=== PATIENT | male | born 1945 | race Hispanic/Latino ===

== ENCOUNTER → 2017-10-31 | Outpatient (CLI) | payer MEDICARE ==
[~2017-10-31] MED LIST: ASPIR 8181 MG; ASPIRIN ENTERI325 MG PO; CARVEDILOL12.5 MG PO; CARVEDILOL3.125 MG PO; CARVEDILOL6.25 MG PO; CLOPIDOGREL75 MG PO; COREG3.125 MG PO; DIAZEPAM2 MG PO; ECOTRIN81 MG PO; ISOSORBIDE MONO30 M1 PO; ISOSORBIDE MONO30 MG PO; ISOSORBIDE MONO60 MG PO; KEFLEX500 MG PO; LAMISIL250 MG PO; LISINOPRIL2.5 MG PO; MELOXICAM7.5 MG PO; NORCO 5-325 TA1 EACH PO; OMEPRAZOLE40 MG PO; ORPHENADRINE C100 MG PO; PLAVIX75 MG PO; RANEXA500 MG PO; REGADENOSON 0.4 MG/5 ML SYR IV ONE; SIMVASTATIN20 MG PO; SODIUM CHLORIDE 0.9% 250ML 250 ML ONE; TIZANIDINE HCL4 MG PO; VASOTEC10 M1 PO; VASOTEC5 MG PO; VICODIN 5-5001 EACH; XARELTO10 MG PO
--- NOTE | 2017-10-31 18:53 | Cardiology Report ---
DATE OF STUDY: October 31, 2017 LEXISCAN NUCLEAR STRESS TEST INDICATIONS: Chest pain. DESCRIPTION OF PROCEDURE: After informed consent, patient was brought to the stress lab. He was given 11 mCi of technetium 99 Myoview intravenously and myocardial perfusion and SPECT images obtained in horizontal long axis, short axis, and vertical long axis views and subsequently patient was given 0.4 mg Lexiscan over 10 seconds. Patient was given 32 mCi of technetium 99 Myoview, and myocardial perfusion SPECT image was obtained in the horizontal long axis, short axis and vertical long axis views. Gating images were also obtained. Patient tolerated the procedure without any complications. REPORT: Baseline EKG shows sinus rhythm 79 beats per minute. Left anterior fascicular block, right bundle right block and secondary ST-T changes. PARAMETERS 1. Resting heart rate is 71 beats per minute. 2. Maximum heart rate 99 beats per minute. 3. Resting blood pressure 98/72 mmHg. 4. Maximum blood pressure 113/75 mmHg. REASON FOR TERMINATION: End point attained. INTERPRETATION 1. Negative for chest pain. 2. Negative for arrhythmias. 3. Blood pressure response consistent with Lexiscan. 4. No significant ST-T changes seen during Lexiscan infusion compared to baseline. 5. Analysis SPECT images reveals uniform radioisotope uptake in all segments of myocardium without any significant perfusion defect. CONCLUSION: No evidence of significant ischemia or infarction on the study. Mild diffuse hypokinesis of the left ventricle is noted. Overall ejection fraction is 47%. Job#: [id number]
== END ==
LOC: NM 07:53
DX: R07.2 Precordial pain (principal)
CPT/HCPCS: 78452; 93017; A9502; J7050

== ENCOUNTER 2018-11-27 21:38 | Emergency (ER) | payer MEDICARE, OTHER ==
[~2018-11-27] VITALS: Ht 167.6 cm; Wt 104.3 kg
[~2018-11-27 21:38] MED LIST changes: -REGADENOSON 0.4 MG/5 ML SYR IV ONE; -SODIUM CHLORIDE 0.9% 250ML 250 ML ONE
--- OUTSIDE RECORDS SUMMARY | 2018-11-27 21:42 | XMS REPORT ---
Author Author [facility] Address Unknown Phone Unavailable Care Team Providers Care [employer] Consultant Name Role Phone MATTHEW WRIGHT Unavailable Unavailable TERESA QUEEN Unavailable Unavailable Problems This patient has no known problems. Allergies, Adverse Reactions, Alerts This patient has no known allergies or adverse reactions. Medications This patient has no known medications. Results Test Description Test Time Test Comments Text Results Atomic Results Result Comments Stress Test - Treadmill ONLY [place] [address] Patient Name : ROMI HERNDON MR #: [id number] : 1945 Age/Sex: 72/M Adm Physician : MATTHEW WRIGHT MD Admit Date : Location : [place] Room/Bed : REPORT: Cardiology Report DATE OF STUDY: October 31, 2017 LEXISCAN NUCLEAR STRESS TEST INDICATIONS: Chest pain. DESCRIPTION OF PROCEDURE: After informed consent, patient was brought to the stress lab. He was given 11 mCi of technetium 99 Myoview intravenously and myocardial perfusion and SPECT images obtained in horizontal long axis, short axis, and vertical long axis views and subsequently patient was given 0.4 mg Lexiscan over 10 seconds. Patient was given 32 mCi of technetium 99 Myoview, and myocardial perfusion SPECT image was obtained in the horizontal long axis, short axis and vertical long axis views. Gating images were also obtained. Patient tolerated the procedure without any complications. REPORT: Baseline EKG shows sinus rhythm 79 beats per minute. Left anterior fascicular block, right bundle right block and secondary ST-T changes. PARAMETERS 1. Resting heart rate is 71 beats per minute. 2. Maximum heart rate 99 beats per minute. 3. Resting blood pressure 98/72 mmHg. 4. Maximum blood pressure 113/75 mmHg. REASON FOR TERMINATION: End point attained. INTERPRETATION 1. Negative for chest pain. 2. Negative for arrhythmias. 3. Blood pressure response consistent with Lexiscan. 4. No significant ST-T changes seen during Lexiscan infusion compared to baseline. 5. Analysis SPECT images reveals uniform radioisotope uptake in all segments of myocardium without any significant perfusion defect. CONCLUSION: No evidence of significant isc hemia or infarction on the study. Mild diffuse hypokinesis of the left ventricle is noted. Overall ejection fraction is 47%. Job#: [id number] Signature Date Dictated By: MATTHEW WRIGHT MD Transcribed By: EDS on 10/31/17 <Electronically signed by MATTHEW WRIGHT MD><<Signature on File>>11/01/17 0957 COPY TO: CHEST 2 VIEWS [place] [address] Patient Name: ROMI HERNDON MR #: [id number] : 1945 Age/Sex: 72/M Req #: [id number] Adm Physician: Ordered by: TERESA QUEEN MD Report #: [id number] Location: OR Room/Bed: Procedure: [id number] DX/CHEST 2 VIEWS Exam Date: 07/03/17 Exam Time: 1140 REPORT STATUS: Signed PROCEDURE: Frontal and lateral views of the chest. COMPARISON: None. INDICATIONS: PRE-OP LEFT KNEE SURGERY MONDAY FINDINGS: Lines/tubes: None. Lungs: The lungs are well inflated and clear. There is no evidence of pneumonia or pulmonary edema. Pleura: There is no pleural effusion or pneumothorax. Heart and mediastinum: The heart and the mediastinum are normal. Atherosclerotic calcifications. Bones: No acute bony abnormality. Degenerative changes of the thoracic spine. IMPRESSION: No acute radiographic abnormality. Dictated by: Ursula Hubbard M.D. on 07/03/2017 at 12:19 Electronically approved by: Ursula Hubbard M.D. on 07/03/2017 at 12:19 Dictated By: URSULA HUBBARD MD 1219 Transcribed By: NOA on 07/03/17 1219 COPY TO: TERESA QUEEN MD
[2018-11-27] MEDS ORDERED: TRAMADOL HCL 50 MG TAB PO ONE (23:30)
--- NOTE | 2018-11-28 01:26 | Diagnostic Imaging Report ---
FOOT LEFT COMPLETE, ANKLE 3+ VIEWS LEFT - 3 views HISTORY: Pain status post injury. COMPARISON: None available. FINDINGS: Bones: No acute displaced fracture. Osseous alignment is within normal limits. Joints: Degenerative changes of the tarsal joints, first metatarsophalangeal joint, and tibiotalar joint. Soft tissues: Plantar calcaneal enthesophyte and Achilles enthesopathy. Vascular calcifications. Moderate soft tissue swelling, particularly of the lateral malleolus. IMPRESSION: No acute osseous abnormality. Signed by: Dr. Carlos Anders M.D. on 11/28/2018 1:22 AM
[2018-11-28 01:51] VITALS: BP 123/79
== END 2018-11-28 02:00 | disposition home or self-care (01) ==
LOC: ER 21:38
DX: M25.572 Pain in left ankle and joints of left foot (principal); S93.492A Sprain of other ligament of left ankle, initial encounter; X50.1XXA Overexertion from prolonged static or awkward postures, initial encounter; Y92.008 Other place in unspecified non-institutional (private) residence as the place of occurrence of the external cause; I10 Essential (primary) hypertension; M54.9 Dorsalgia, unspecified; G89.29 Other chronic pain
CPT/HCPCS: 99283

== ENCOUNTER → 2019-11-26 | Outpatient (CLI) | payer MEDICARE ==
[~2019-11-26] MED LIST changes: +REGADENOSON 0.4 MG/5 ML SYR IV ONE
--- NOTE | 2019-11-26 22:19 | Myoview Stress Test ---
DATE OF STUDY: 11/26/2019 08:47:00 Stress Test - Treadmill ONLY PROCEDURE TITLE: Rest/stress single isotope SPECT imaging with pharmacologic stress and gated SPECT imaging. INDICATION: Chest pain. PROCEDURE IN DETAIL: Pharmacologic stress testing was performed with regadenoson per protocol. The heart rate was 65 beats per minute at rest and increased to 97 beats per minute. During the regadenoson infusion, the resting blood pressure was 102/67 mmHg and decreased to 84/59 mmHg, which is a normal response. The resting electrocardiogram demonstrated normal sinus rhythm. There were no ST-segment changes suggestive of myocardial ischemia. Myocardial perfusion imaging was performed at rest following the injection of 11 mCi of tetrofosmin. At peak pharmacologic effect, the patient was injected with 33 mCi of tetrofosmin. Gated post-stress tomographic imaging was performed. FINDINGS: The overall quality of study is fair. Left ventricular cavity is noted to be normal size on the rest and stress studies. SPECT images demonstrate homogeneous tracer distribution throughout the myocardium. Gated SPECT imaging reveals normal myocardial thickening and wall motion. The left ventricular ejection fraction was greater than 50% by visual estimate. IMPRESSION: Myocardial perfusion imaging is normal. Overall, left ventricular systolic pressure was normal without regional wall motion abnormalities. Johanne Gilbert MD ABS/MODL /[id number]
== END ==
LOC: NM 08:29
PROVIDERS: ATTEND Internal Medicine Cardiovascular Disease
DX: R07.9 Chest pain, unspecified (principal); I25.10 Atherosclerotic heart disease of native coronary artery without angina pectoris
CPT/HCPCS: 78452; 93017; 93306; A9502; J2785

== ENCOUNTER → 2020-06-11 | Day surgery (SDC) | payer MEDICARE, OTHER ==
[2020-06-08 12:30] LABS: BASOPHILS % 0.3 % (0.0-1.0); EOSINOPHILS # (AUTO) 0.1 (0.0-0.4); EOSINOPHILS % 0.5 % (0.0-6.0); HEMATOCRIT 49.8 % (38.2-49.6); HEMOGLOBIN 16.2 g/dL (14.0-18.0); LYMPHOCYTES % 14.6 % (18.0-39.1); MEAN CORPUSCULAR HEMOGLOBIN 28.9 pg (28-32); MEAN CORPUSCULAR HGB CONC 32.5 g/dL (31-35); MEAN CORPUSCULAR VOLUME 88.8 fL (81-99); MONOCYTES # (AUTO) 1.1 (0.2-0.8); MONOCYTES % 7.8 % (4.4-11.3); NEUTROPHILS # (AUTO) 10.2 (2.1-6.9); NEUTROPHILS % 75.5 % (38.7-80.0); PLATELET COUNT 177 x10e3/uL (140-360); RED BLOOD COUNT 5.61 x10e6/uL (4.3-5.7); RED CELL DISTRIBUTION WIDTH 14.9 % (11.7-14.4)
[2020-06-08 12:47] LABS: ANION GAP 14.5 mmol/L (8-16); CALCIUM 8.9 mg/dL (8.4-10.2); CREATININE, SERUM 1.31 mg/dL (0.72-1.25); POTASSIUM 4.5 mmol/L (3.5-5.1)
--- NOTE | 2020-06-08 12:59 | Diagnostic Imaging Report ---
EXAMINATION: CHEST 2 VIEWS INDICATION: Preop for urology procedure ^[id number] ^1230 ^PRE OP COMPARISON: 08/21/2016 FINDINGS: TUBES and LINES: None. LUNGS: Lungs are well inflated. Lungs are clear. There is no evidence of pneumonia or pulmonary edema. PLEURA: No pleural effusion or pneumothorax. HEART AND MEDIASTINUM: The cardiomediastinal silhouette is unremarkable. BONES AND SOFT TISSUES: No acute osseous lesion. Soft tissues are unremarkable. UPPER ABDOMEN: No free air under the diaphragm. IMPRESSION: No acute thoracic abnormality. Signed by: Dr. Kaushik Trotter M.D. on 06/08/2020 12:56 PM
[~2020-06-11] MED LIST changes: +ASPIRIN81 MG PO; +CEFTRIAXONE SOD 1 GM/NS 50 ML 50 ML IV ONE; +CIPRO500 MG PO; +DEXAMETHASONE SOD PHOS INJ 4 MG/ML VIAL ONE; +EPHEDRINE SULFATE INJ 50 MG/ML VIAL ONE; +FENTANYL CITRATE/PF 100MCG/2 ML INJ ONE; +FLOMAX0.4 MG PO; +IOPAMIDOL 300MG/ML 50ML INFUS..BTL IV ONE; +LEVOTHYROXINE50 MCG PO; +LIDOCAINE HCL 2% LOCAL INJ 5 ML SDV VIAL INJ ONE; +MIDAZOLAM HCL 2 MG/2 ML VIAL ONE; +ONDANSETRON HCL INJ 2MG/ML 2ML 2 MG/ML VIAL ONE; +PROPOFOL IV EMULSION 10 MG/ML 20 ML VIAL ONE; -REGADENOSON 0.4 MG/5 ML SYR IV ONE; +SEVOFLURANE INHAL SOLN 250 ML PEN BTL ONE
[2020-06-11 10:00] VITALS: BP 126/78
--- NOTE | 2020-07-03 01:32 | Operative Report ---
DATE OF PROCEDURE: 06/11/2020 SURGEON: Mitch Vera MD PREOPERATIVE DIAGNOSIS: Left proximal ureteral stone. POSTOPERATIVE DIAGNOSIS: Left proximal ureteral stone. PROCEDURE PERFORMED: 1. Cystoscopy. 2. Left retrograde pyelogram. 3. Left ureteroscopy with laser lithotripsy. 4. Placement of left ureteral stent. ANESTHESIA: General anesthesia. ESTIMATED BLOOD LOSS: Minimal. INDICATIONS: Mr. Garber is a 75-year-old gentleman who recently presented with left flank pain and was found to have an 8 mm left proximal ureteral stone. He now presents for definitive surgical management of this problem. PROCEDURE IN DETAIL: The patient was brought into the operating room and placed in supine position. After administration of general anesthesia, he was placed in dorsal lithotomy position and prepped and draped in the usual sterile fashion. Cystourethroscopy was performed using 21-Macedonian cystoscope. The anterior and posterior urethra were noted to be normal. The prostate revealed lateral lobar hyperplasia and mild elevation of the median bar. The bladder was entered without difficulty. Upon entrance into the bladder, the ureteral orifices were in normal anatomical position and produced clear efflux. Grade 2 trabeculations were noted. There were no mucosal lesions identified. Using a 5-Macedonian open-ended catheter, left retrograde pyelogram was performed. This revealed a filling defect at the juncture of the proximal and mid thirds of the ureter on the left side. With retrograde, this was noted to float up to the more proximal ureter and renal pelvis. Under fluoroscopic guidance, a wire was placed across the stone and up into the left renal pelvis. Of note, there was moderate hydronephrosis noted behind the stone. Flexible ureteroscopy was then performed. The visualized portion of the proximal ureter was noted to be largely normal except for edema at the site of obstruction. With the stone in the renal pelvis, the holmium laser was used to break the stone into multiple smaller fragments, the larger of which were grabbed with a basket and removed in their entirety. The smaller stones were allowed to irrigate free. Once there was no more large stone seen, the ureteroscope was removed and a stent was placed such that one coil was in the renal pelvis and the subsequent coil was in the bladder. The string was allowed to exit the urethral meatus. The bladder was drained in its entirety and the cystoscope and the sheath were removed. The patient was returned to supine position and anesthesia was reversed. He was transferred to bed and taken to the postanesthesia care unit in good condition. Of note, the needle and instrument count were correct at the conclusion of the case. MD BERTRAND Miles/VIANCA /[id number]
== END | disposition home or self-care (01) ==
LOC: OR 05:15
PROVIDERS: ATTEND Urology
DX: N20.1 Calculus of ureter (principal); N40.0 Benign prostatic hyperplasia without lower urinary tract symptoms; N32.89 Other specified disorders of bladder; N13.30 Unspecified hydronephrosis; E03.9 Hypothyroidism, unspecified; G47.33 Obstructive sleep apnea (adult) (pediatric); I25.10 Atherosclerotic heart disease of native coronary artery without angina pectoris; I11.0 Hypertensive heart disease with heart failure; I50.9 Heart failure, unspecified; F17.210 Nicotine dependence, cigarettes, uncomplicated; Z01.810 Encounter for preprocedural cardiovascular examination; Z01.812 Encounter for preprocedural laboratory examination; Z01.818 Encounter for other preprocedural examination; Z11.59 Encounter for screening for other viral diseases; Z79.02 Long term (current) use of antithrombotics/antiplatelets; Z79.82 Long term (current) use of aspirin; Z68.35 Body mass index [BMI] 35.0-35.9, adult
CPT/HCPCS: 36415; 52356; 71046; 74420; 80048; 85025; 88300; 93005; C1758; C1766; C1769; C2617; J0696; J1100; J2001; J2250; J2405; J2704; J3010; Q9967; U0002

== ENCOUNTER → 2023-01-31 | Outpatient (CLI) | payer MEDICARE ==
[~2023-01-31] MED LIST changes: -CEFTRIAXONE SOD 1 GM/NS 50 ML 50 ML IV ONE; -DEXAMETHASONE SOD PHOS INJ 4 MG/ML VIAL ONE; -EPHEDRINE SULFATE INJ 50 MG/ML VIAL ONE; -FENTANYL CITRATE/PF 100MCG/2 ML INJ ONE; -IOPAMIDOL 300MG/ML 50ML INFUS..BTL IV ONE; -LIDOCAINE HCL 2% LOCAL INJ 5 ML SDV VIAL INJ ONE; +LIDOCAINE1 EACH EXT; +METHOCARBAMOL750 MG PO; -MIDAZOLAM HCL 2 MG/2 ML VIAL ONE; +NAPROXEN250 MG PO; -ONDANSETRON HCL INJ 2MG/ML 2ML 2 MG/ML VIAL ONE; -PROPOFOL IV EMULSION 10 MG/ML 20 ML VIAL ONE; +REGADENOSON 0.4 MG/5 ML SYR IV ONE; -SEVOFLURANE INHAL SOLN 250 ML PEN BTL ONE
== END ==
LOC: NM 08:33
PROVIDERS: ATTEND Internal Medicine Cardiovascular Disease
DX: R07.9 Chest pain, unspecified (principal); I25.10 Atherosclerotic heart disease of native coronary artery without angina pectoris
CPT/HCPCS: 78452; 93017; 93306; A9502; J2785

== ENCOUNTER 2023-02-06 10:50 | Emergency (ER) | payer MEDICARE ==
[~2023-02-06] VITALS: Ht 167.6 cm; Wt 99.8 kg
[~2023-02-06 10:50] MED LIST changes: -LIDOCAINE1 EACH EXT; -METHOCARBAMOL750 MG PO; -NAPROXEN250 MG PO; -REGADENOSON 0.4 MG/5 ML SYR IV ONE
[2023-02-06 11:35] LABS: BASOPHILS # (AUTO) 0.1 (0.0-0.1); BASOPHILS % 0.7 % (0.0-1.0); EOSINOPHILS # (AUTO) 0.1 (0.0-0.4); EOSINOPHILS % 1.1 % (0.0-6.0); HEMATOCRIT 47.1 % (38.2-49.6); HEMOGLOBIN 15.4 g/dL (14.0-18.0); LYMPHOCYTES # (AUTO) 1.9 (1.0-3.2); LYMPHOCYTES % 22.2 % (18.0-39.1); MEAN CORPUSCULAR HEMOGLOBIN 29.8 pg (28-32); MEAN CORPUSCULAR HGB CONC 32.7 g/dL (31-35); MEAN CORPUSCULAR VOLUME 91.1 fL (81-99); MONOCYTES # (AUTO) 0.5 (0.2-0.8); MONOCYTES % 6.4 % (4.4-11.3); NEUTROPHILS # (AUTO) 5.8 (2.1-6.9); NEUTROPHILS % 69.2 % (38.7-80.0); PLATELET COUNT 143 x10e3/uL (140-360); RED BLOOD COUNT 5.17 x10e6/uL (4.3-5.7); RED CELL DISTRIBUTION WIDTH 14.4 % (11.7-14.4)
[2023-02-06 12:01] LABS: ALBUMIN 3.6 g/dL (3.5-5.0); CREATININE, SERUM 0.93 mg/dL (0.72-1.25)
[2023-02-06] MEDS ORDERED: SODIUM CHLORIDE 0.9% 100 ML ONE (12:09)
[2023-02-06] MEDS ORDERED: IOPAMIDOL 370 MG/ML 100 ML INFUS..BTL INJ ONE (12:09)
[2023-02-06] MEDS ORDERED: SODIUM CHLORIDE 0.9% 1000ML 1,000 ML IV ONE (13:00)
[2023-02-06 13:22] LABS: CLARITY,URINE CLEAR (CLEAR); COLOR,URINE YELLOW (YELLOW); KETONES,URINE NEGATIVE (NEGATIVE); LEUKOCYTE ESTERASE ,URINE NEGATIVE (NEGATIVE); NITRITE,URINE NEGATIVE (NEGATIVE); PROTEIN,URINE DIPSTICK NEGATIVE (NEGATIVE); URINE UROBILINOGEN 0.2 mg/dL (0.2 - 1)
[2023-02-06 13:33] LABS: EPITHELIAL CELLS,URINE RARE /LPF; RBC,URINE 0-5 /HPF (0-5); WBC,URINE (MAN) 0-5 /HPF (0-5)
[2023-02-06] MEDS ORDERED: METHOCARBAMOL750 MG PO (13:44)
[2023-02-06 14:05] VITALS: BP 116/71; PULSE 58; RESP 17; O2SAT 100
== END 2023-02-06 14:08 | disposition home or self-care (01) ==
LOC: ER 11:09
DX: R10.31 Right lower quadrant pain (principal); D49.7 Neoplasm of unspecified behavior of endocrine glands and other parts of nervous system; N28.89 Other specified disorders of kidney and ureter; R94.31 Abnormal electrocardiogram [ECG] [EKG]
CPT/HCPCS: 36415; 71275; 74174; 80053; 81001; 84484; 85025; 93005; 99283; J7030; J7050; Q9967

== ENCOUNTER 2023-02-08 09:52 | Emergency (ER) | payer MEDICARE ==
[~2023-02-08] VITALS: Ht 167.6 cm; Wt 99.8 kg
[~2023-02-08 09:52] MED LIST changes: +METHOCARBAMOL750 MG PO
[2023-02-08 10:05] VITALS: O2SAT 98
[2023-02-08] MEDS ORDERED: KETOROLAC TROMETHAMINE 30 MG/ML VIAL IM STA (10:25)
[2023-02-08] MEDS ORDERED: LIDOCAINE 4% PATCH TP STA (10:25)
[2023-02-08] MEDS ORDERED: DEXAMETHASONE 4 MG TAB PO STA (10:25)
[2023-02-08] MEDS ORDERED: ACETAMINOPHEN 325 MG TAB PO ONE (10:30)
[2023-02-08] MEDS ORDERED: NAPROXEN250 MG PO (10:44)
[2023-02-08] MEDS ORDERED: LIDOCAINE1 EACH EXT (10:44)
== END 2023-02-08 11:11 | disposition home or self-care (01) ==
LOC: ER 10:06
DX: M54.50 Low back pain, unspecified (principal); I10 Essential (primary) hypertension; E11.9 Type 2 diabetes mellitus without complications; E78.5 Hyperlipidemia, unspecified; I25.10 Atherosclerotic heart disease of native coronary artery without angina pectoris; G89.29 Other chronic pain; Z95.5 Presence of coronary angioplasty implant and graft; F17.210 Nicotine dependence, cigarettes, uncomplicated
CPT/HCPCS: 99284; J1885; J8540

== ENCOUNTER → 2023-02-23 | Day surgery (SDC) | payer MEDICARE ==
[2023-02-21 11:22] LABS: BASOPHILS # (AUTO) 0.1 (0.0-0.1); BASOPHILS % 0.6 % (0.0-1.0); EOSINOPHILS # (AUTO) 0.1 (0.0-0.4); HEMATOCRIT 46.7 % (38.2-49.6); HEMOGLOBIN 15.5 g/dL (14.0-18.0); LYMPHOCYTES # (AUTO) 1.8 (1.0-3.2); LYMPHOCYTES % 18.3 % (18.0-39.1); MEAN CORPUSCULAR HEMOGLOBIN 29.8 pg (28-32); MEAN CORPUSCULAR HGB CONC 33.2 g/dL (31-35); MEAN CORPUSCULAR VOLUME 89.8 fL (81-99); MONOCYTES # (AUTO) 0.6 (0.2-0.8); MONOCYTES % 6.2 % (4.4-11.3); NEUTROPHILS # (AUTO) 7.2 (2.1-6.9); NEUTROPHILS % 73.2 % (38.7-80.0); PLATELET COUNT 174 x10e3/uL (140-360); RED CELL DISTRIBUTION WIDTH 14.4 % (11.7-14.4)
[2023-02-21 11:43] LABS: INR 0.96; PROTHROMBIN TIME 13.3 seconds (11.9-14.5)
[2023-02-21 11:44] LABS: PARTIAL THROMBOPLASTIN TIME 28.5 seconds (23.8-35.5)
[2023-02-21 11:52] LABS: ALBUMIN 3.7 g/dL (3.5-5.0); ALBUMIN/GLOBULIN RATIO 1.1 (0.8-2.0); ANION GAP 11.3 mmol/L (8-16); CALCIUM 9.6 mg/dL (8.4-10.2); CREATININE, SERUM 0.97 mg/dL (0.72-1.25); POTASSIUM 4.3 mmol/L (3.5-5.1)
[2023-02-23] VITALS (10 sets, daily range): BP systolic 121–142; BP diastolic 66–95; PULSE 61–75; RESP 14; TEMP 97.4; O2SAT 97–100
[~2023-02-23] VITALS: Ht 167.6 cm; Wt 99.8 kg
[~2023-02-23] MED LIST changes: +FENTANYL CITRATE/PF 100MCG/2 ML INJ ONE; +HEPARIN SOD (PORCINE) 1000 UNIT/ML 30ML ONE; +HEPARIN SOD/SOD CHLORIDE 2,000 ML ONE; +IOPAMIDOL 370 MG/ML 100 ML INFUS..BTL INJ ONE; +LIDOCAINE HCL 2% LOCAL 20 ML VIAL ONE; +LIDOCAINE1 EACH EXT; +METFORMIN HCL500 MG PO; +MIDAZOLAM HCL 2 MG/2 ML VIAL ONE; +NAPROXEN250 MG PO; +NITROGLYCERIN/D5W 200 MCG/ML 250 ML ONE; +SODIUM CHLORIDE 0.9% 1000ML 1,000 ML ONE; +TRICOR145 MG PO; +VERAPAMIL HCL 2.5 MG/ML 2 ML VIAL ONE
== END | disposition home or self-care (01) ==
LOC: CATH LAB 12:32
PROVIDERS: ATTEND Internal Medicine Cardiovascular Disease
DX: I25.10 Atherosclerotic heart disease of native coronary artery without angina pectoris (principal); R94.39 Abnormal result of other cardiovascular function study; I11.0 Hypertensive heart disease with heart failure; I50.9 Heart failure, unspecified; I45.10 Unspecified right bundle-branch block; E78.5 Hyperlipidemia, unspecified; Z01.812 Encounter for preprocedural laboratory examination; Z79.84 Long term (current) use of oral hypoglycemic drugs; Z79.02 Long term (current) use of antithrombotics/antiplatelets; Z79.82 Long term (current) use of aspirin; Z79.899 Other long term (current) drug therapy; Z68.35 Body mass index [BMI] 35.0-35.9, adult
CPT/HCPCS: 36415; 80053; 80061; 85025; 85610; 85730; 93458; C1887 ×2; J2001; J2250; J3010; J7030; Q9967; 99152; 99153; J1644

== ENCOUNTER → 2024-03-08 | Day surgery (SDC) | payer MEDICARE ==
[2024-03-05 15:54] LABS: BASOPHILS % 0.5 % (0.0-1.0); EOSINOPHILS # (AUTO) 0.2 (0.0-0.4); EOSINOPHILS % 1.8 % (0.0-6.0); HEMATOCRIT 41.3 % (38.2-49.6); HEMOGLOBIN 13.7 g/dL (14.0-18.0); LYMPHOCYTES # (AUTO) 2.1 (1.0-3.2); LYMPHOCYTES % 25.1 % (18.0-39.1); MEAN CORPUSCULAR HEMOGLOBIN 27.8 pg (28-32); MEAN CORPUSCULAR HGB CONC 33.2 g/dL (31-35); MEAN CORPUSCULAR VOLUME 83.8 fL (81-99); MONOCYTES # (AUTO) 0.6 (0.2-0.8); MONOCYTES % 7.3 % (4.4-11.3); NEUTROPHILS # (AUTO) 5.4 (2.1-6.9); NEUTROPHILS % 64.6 % (38.7-80.0); PLATELET COUNT 189 x10e3/uL (140-360); RED BLOOD COUNT 4.93 x10e6/uL (4.3-5.7); RED CELL DISTRIBUTION WIDTH 16.7 % (11.7-14.4); WHITE BLOOD COUNT 8.34 x10e3/uL (4.8-10.8)
[2024-03-05 16:16] LABS: ANION GAP 14.3 mmol/L (8-16); CALCIUM 9.5 mg/dL (8.4-10.2); CREATININE, SERUM 1.12 mg/dL (0.72-1.25); POTASSIUM 4.3 mmol/L (3.5-5.1)
[2024-03-06 05:14] LABS: CALCIUM 9.2 mg/dL (8.6-10.2)
[~2024-03-08] MED LIST changes: +ACETAMINOPHEN-1 EAC4 PO; +DOCUSATE SODIU100 MG PO; +EPHEDRINE SULFATE INJ 50 MG/ML VIAL ONE; +GLIMEPIRIDE2 MG PO; -HEPARIN SOD (PORCINE) 1000 UNIT/ML 30ML ONE; -HEPARIN SOD/SOD CHLORIDE 2,000 ML ONE; -IOPAMIDOL 370 MG/ML 100 ML INFUS..BTL INJ ONE; +IOPAMIDOL 610MG/1ML 300 MG/ML VIAL IV ONE; -LIDOCAINE HCL 2% LOCAL 20 ML VIAL ONE; +LIDOCAINE HCL 2% LOCAL INJ 5 ML SDV VIAL INJ ONE; -MIDAZOLAM HCL 2 MG/2 ML VIAL ONE; +MONTELUKAST SOD10 MG PO; -NITROGLYCERIN/D5W 200 MCG/ML 250 ML ONE; +ONDANSETRON HCL INJ 2MG/ML 2ML 2 MG/ML VIAL ONE; +PROPOFOL IV EMULSION 10 MG/ML 20 ML VIAL ONE; +SENNA LAX8.6 MG PO; -SODIUM CHLORIDE 0.9% 1000ML 1,000 ML ONE; +TYLENOL325 MG PO; +ULTRAM 50MG50 MG PO; -VERAPAMIL HCL 2.5 MG/ML 2 ML VIAL ONE; +ZYRTEC10 M3 PO
[2024-03-08] MEDS: CEFTRIAXONE 1 GM VIAL ONE (07:36)
[2024-03-08] MEDS: LACTATED RINGER'S 1,000 ML ONE (07:36)
[2024-03-08] MEDS: PHENAZOPYRIDINE HCL 100 MG TAB ONE (11:25)
[2024-03-08 11:31] VITALS: BP 114/72; PULSE 62; RESP 17; O2SAT 98
== END | disposition home or self-care (01) ==
LOC: OR 07:00
PROVIDERS: ATTEND Urology
DX: N20.0 Calculus of kidney (principal); C68.0 Malignant neoplasm of urethra; N40.1 Benign prostatic hyperplasia with lower urinary tract symptoms; N13.8 Other obstructive and reflux uropathy; N32.89 Other specified disorders of bladder; G47.33 Obstructive sleep apnea (adult) (pediatric); E11.9 Type 2 diabetes mellitus without complications; I10 Essential (primary) hypertension; I45.10 Unspecified right bundle-branch block; I25.10 Atherosclerotic heart disease of native coronary artery without angina pectoris; E78.5 Hyperlipidemia, unspecified; E03.9 Hypothyroidism, unspecified; G89.29 Other chronic pain; Z01.810 Encounter for preprocedural cardiovascular examination; Z01.812 Encounter for preprocedural laboratory examination; Z01.818 Encounter for other preprocedural examination; Z79.02 Long term (current) use of antithrombotics/antiplatelets; Z79.82 Long term (current) use of aspirin; Z79.84 Long term (current) use of oral hypoglycemic drugs; Z79.899 Other long term (current) drug therapy; Z87.891 Personal history of nicotine dependence; Z95.5 Presence of coronary angioplasty implant and graft
CPT/HCPCS: 36415; 50590; 71046; 74018; 80048; 83970; 84550; 85025; 88305; 93005; C1758; J0696; J2001; J2405

== ENCOUNTER 2024-04-17 17:01 | Inpatient (IN) | payer MEDICARE ==
[~2024-04-17] VITALS: Ht 167.6 cm; Wt 95.3 kg
[~2024-04-17 17:01] MED LIST changes: -EPHEDRINE SULFATE INJ 50 MG/ML VIAL ONE; -FENTANYL CITRATE/PF 100MCG/2 ML INJ ONE; -IOPAMIDOL 610MG/1ML 300 MG/ML VIAL IV ONE; -LIDOCAINE HCL 2% LOCAL INJ 5 ML SDV VIAL INJ ONE; -ONDANSETRON HCL INJ 2MG/ML 2ML 2 MG/ML VIAL ONE; -PROPOFOL IV EMULSION 10 MG/ML 20 ML VIAL ONE
[2024-04-17 18:01] LABS: BASOPHILS % 0.4 % (0.0-1.0); EOSINOPHILS # (AUTO) 0.2 (0.0-0.4); EOSINOPHILS % 1.7 % (0.0-6.0); HEMATOCRIT 44.1 % (38.2-49.6); HEMOGLOBIN 14.3 g/dL (14.0-18.0); LYMPHOCYTES # (AUTO) 2.1 (1.0-3.2); LYMPHOCYTES % 23.9 % (18.0-39.1); MEAN CORPUSCULAR HEMOGLOBIN 28.6 pg (28-32); MEAN CORPUSCULAR HGB CONC 32.4 g/dL (31-35); MEAN CORPUSCULAR VOLUME 88.2 fL (81-99); MONOCYTES # (AUTO) 0.5 (0.2-0.8); MONOCYTES % 6.1 % (4.4-11.3); NEUTROPHILS % 67.3 % (38.7-80.0); PLATELET COUNT 202 x10e3/uL (140-360); RED CELL DISTRIBUTION WIDTH 15.6 % (11.7-14.4)
[2024-04-17 18:10] LABS: INR 0.87; PROTHROMBIN TIME 12.5 seconds (11.9-14.5)
[2024-04-17 18:11] LABS: PARTIAL THROMBOPLASTIN TIME 27.5 seconds (23.8-35.5)
[2024-04-17 18:17] LABS: ALBUMIN 3.6 g/dL (3.5-5.0); ANION GAP 14.3 mmol/L (8-16); BILIRUBIN,TOTAL 0.9 mg/dL (0.2-1.2); CALCIUM 9.6 mg/dL (8.4-10.2); CREATININE, SERUM 1.25 mg/dL (0.72-1.25); POTASSIUM 4.3 mmol/L (3.5-5.1); TOTAL PROTEIN 7.2 g/dL (6.5-8.1)
[2024-04-17] MEDS ORDERED: SODIUM CHLORIDE 0.9% 250ML 250 ML ONE (18:34)
[2024-04-17] MEDS ORDERED: IOPAMIDOL 370 MG/ML 100 ML INFUS..BTL INJ ONE (18:34)
[2024-04-17 18:51] LABS: BILIRUBIN,URINE MODERATE (NEGATIVE); CLARITY,URINE CLEAR (CLEAR); GLUCOSE, URINE NEGATIVE (NEGATIVE); KETONES,URINE TRACE (NEGATIVE); LEUKOCYTE ESTERASE ,URINE NEGATIVE (NEGATIVE); NITRITE,URINE NEGATIVE (NEGATIVE); PH,URINE 5.5 (5 - 7); PROTEIN,URINE DIPSTICK >=300 (NEGATIVE); URINE UROBILINOGEN 1 mg/dL (0.2 - 1)
[2024-04-17 18:52] LABS: COLOR,URINE RED (YELLOW)
[2024-04-17 18:53] LABS: BACTERIA,URINE MANY /HPF; EPITHELIAL CELLS,URINE RARE /LPF; RBC,URINE >50 /HPF (0-5); WBC,URINE (MAN) 0-5 /HPF (0-5)
[2024-04-17] MEDS: ONDANSETRON HCL INJ 2MG/ML 2ML 2 MG/ML VIAL IV STA (19:33)
[2024-04-17] MEDS: Morphine 4mg INJECTION 4 MG/ML INJ IV ONE (19:34)
[2024-04-17] MEDS: SODIUM CHLORIDE 0.9% 1000ML 1,000 ML IV ONE ×2 (19:35→23:46)
[2024-04-17] MEDS ORDERED: Morphine 4mg INJECTION 4 MG/ML INJ IV PRN (21:00)
[2024-04-17] MEDS ORDERED: ONDANSETRON HCL INJ 2MG/ML 2ML 2 MG/ML VIAL IV PRN (21:00)
[2024-04-17] MEDS ORDERED: DEXTROSE 50% SYRINGE 50 ML IV PRN (21:00)
[2024-04-17] MEDS: INSULIN REGULAR, HUMAN 100 UNIT/1 ML SQ SCH (21:00)
[2024-04-17 21:38] VITALS: PULSE 72; RESP 18; TEMP 98.3
[2024-04-17 22:15] VITALS: PULSE 81; RESP 16; O2SAT 96
[2024-04-17 22:45] VITALS: BP 123/82; PULSE 70; RESP 20; TEMP 97.9; O2SAT 98
[2024-04-17 23:00] VITALS: BP 123/82; PULSE 70; RESP 20; TEMP 97.9; O2SAT 98
[2024-04-18] VITALS (9 sets, daily range): BP systolic 114–140; BP diastolic 72–88; PULSE 54–75; RESP 16–20; TEMP 97.4–97.8; O2SAT 94–100
[2024-04-18 05:41] LABS: BASOPHILS # (AUTO) 0.1 (0.0-0.1); BASOPHILS % 0.6 % (0.0-1.0); EOSINOPHILS # (AUTO) 0.2 (0.0-0.4); EOSINOPHILS % 2.6 % (0.0-6.0); HEMATOCRIT 42.7 % (38.2-49.6); HEMOGLOBIN 13.3 g/dL (14.0-18.0); LYMPHOCYTES # (AUTO) 2.4 (1.0-3.2); LYMPHOCYTES % 26.9 % (18.0-39.1); MEAN CORPUSCULAR HEMOGLOBIN 28.2 pg (28-32); MEAN CORPUSCULAR HGB CONC 31.1 g/dL (31-35); MEAN CORPUSCULAR VOLUME 90.7 fL (81-99); MONOCYTES # (AUTO) 0.7 (0.2-0.8); MONOCYTES % 8.1 % (4.4-11.3); NEUTROPHILS # (AUTO) 5.5 (2.1-6.9); NEUTROPHILS % 61.2 % (38.7-80.0); PLATELET COUNT 168 x10e3/uL (140-360); RED BLOOD COUNT 4.71 x10e6/uL (4.3-5.7); RED CELL DISTRIBUTION WIDTH 15.8 % (11.7-14.4); WHITE BLOOD COUNT 8.96 x10e3/uL (4.8-10.8)
[2024-04-18 06:25] LABS: ALBUMIN 3.2 g/dL (3.5-5.0); ALBUMIN/GLOBULIN RATIO 1.1 (0.8-2.0); ANION GAP 13.9 mmol/L (8-16); BILIRUBIN,TOTAL 0.6 mg/dL (0.2-1.2); CALCIUM 8.8 mg/dL (8.4-10.2); CREATININE, SERUM 1.08 mg/dL (0.72-1.25); POTASSIUM 3.9 mmol/L (3.5-5.1); TOTAL PROTEIN 6.2 g/dL (6.5-8.1)
[2024-04-18] MEDS ORDERED: ACETAMINOPHEN 325 MG TAB PO PRN (08:45)
[2024-04-18] MEDS ORDERED: HYDRALAZINE HCL 20 MG/ML VIAL IV PRN (08:45)
[2024-04-18] MEDS ORDERED: Morphine 4mg INJECTION 4 MG/ML INJ IV PRN (08:45)
[2024-04-18] MEDS: CARVEDILOL 12.5 MG TAB PO SCH (09:30)
[2024-04-18] MEDS ORDERED: LEVOTHYROXINE SODIUM 50 MCG TAB PO SCH (10:00)
[2024-04-18] MEDS: LISINOPRIL 10 MG TAB PO SCH (11:16)
[2024-04-18] MEDS: METHOCARBAMOL 750 MG TAB PO SCH (11:16)
[2024-04-18] MEDS: LORATADINE 10 MG TAB PO SCH (11:16)
[2024-04-18] MEDS: HYDROCODONE/APAP 10MG-325MG TAB PO PRN (11:17)
[2024-04-18] MEDS: LEVOTHYROXINE SODIUM 50 MCG TAB PO SCH (11:56)
[2024-04-18] MEDS: TAMSULOSIN HCL 0.4 MG CAP PO SCH (20:48)
[2024-04-18] MEDS: SIMVASTATIN 40 MG TAB PO SCH (20:48)
[2024-04-18] MEDS: MONTELUKAST SODIUM 10 MG TAB PO SCH (20:48)
[2024-04-19 03:04] VITALS: BP 127/74; PULSE 67; RESP 18; TEMP 97.8; O2SAT 95
[2024-04-19 07:56] VITALS: BP 101/72; PULSE 64; RESP 18; TEMP 97.8; O2SAT 96
[2024-04-19 09:00] VITALS: BP 101/72; PULSE 64; RESP 18; TEMP 97.8; O2SAT 96
[2024-04-19 09:02] VITALS: PULSE 44; RESP 16; O2SAT 96
[2024-04-19] MEDS: SODIUM CHLORIDE 0.9% 250ML 250 ML ONE (09:14)
[2024-04-19 11:28] VITALS: BP 121/65; PULSE 67; RESP 18; TEMP 97.7; O2SAT 97
== END 2024-04-19 12:45 | disposition home or self-care (01) | DRG 690 ==
LOC: ER 18:22 → ERHOLD 20:58 → MED/SURG 22:42
PROVIDERS: ADMIT Internal Medicine; ATTEND Internal Medicine
DX: N39.0 Urinary tract infection, site not specified (principal); K76.0 Fatty (change of) liver, not elsewhere classified; C67.9 Malignant neoplasm of bladder, unspecified; E11.9 Type 2 diabetes mellitus without complications; N40.1 Benign prostatic hyperplasia with lower urinary tract symptoms; R31.0 Gross hematuria; R33.8 Other retention of urine; E66.01 Morbid (severe) obesity due to excess calories; N20.0 Calculus of kidney; N28.1 Cyst of kidney, acquired; I10 Essential (primary) hypertension; I25.10 Atherosclerotic heart disease of native coronary artery without angina pectoris; E78.5 Hyperlipidemia, unspecified; M54.9 Dorsalgia, unspecified; Z11.52 Encounter for screening for COVID-19; Z79.02 Long term (current) use of antithrombotics/antiplatelets; Z79.82 Long term (current) use of aspirin; Z79.84 Long term (current) use of oral hypoglycemic drugs; Z79.890 Hormone replacement therapy; Z90.5 Acquired absence of kidney; Z85.528 Personal history of other malignant neoplasm of kidney; Z95.5 Presence of coronary angioplasty implant and graft; Z87.442 Personal history of urinary calculi; Z87.440 Personal history of urinary (tract) infections; Z83.3 Family history of diabetes mellitus; Z80.9 Family history of malignant neoplasm, unspecified
CPT/HCPCS: 36415; 74178; 80053; 81001; 82948; 84484; 85025; 85610; 85730; 87086; 93005; 93306; 94799; 99284; J0692; J2270; J2405; J7030; J7050; Q9967; U0002

== ENCOUNTER 2024-06-15 14:09 | Inpatient (IN) | payer MEDICARE ==
[~2024-06-15] VITALS: Ht 167.6 cm; Wt 95.3 kg
[2024-06-15 14:09] VITALS: TEMP 99.9
[2024-06-15] MEDS ORDERED: CEFTRIAXONE 1 GM VIAL IV SCH (14:15)
[2024-06-15 14:31] LABS: BASOPHILS % 0.3 % (0.0-1.0); EOSINOPHILS # (AUTO) 0.1 (0.0-0.4); EOSINOPHILS % 0.8 % (0.0-6.0); HEMATOCRIT 40.4 % (38.2-49.6); HEMOGLOBIN 13.3 g/dL (14.0-18.0); LYMPHOCYTES # (AUTO) 0.6 (1.0-3.2); LYMPHOCYTES % 9.4 % (18.0-39.1); MEAN CORPUSCULAR HGB CONC 32.9 g/dL (31-35); MONOCYTES # (AUTO) 0.5 (0.2-0.8); MONOCYTES % 7.8 % (4.4-11.3); NEUTROPHILS # (AUTO) 5.1 (2.1-6.9); NEUTROPHILS % 81.2 % (38.7-80.0); PLATELET COUNT 153 x10e3/uL (140-360); RED BLOOD COUNT 4.59 x10e6/uL (4.3-5.7); RED CELL DISTRIBUTION WIDTH 14.3 % (11.7-14.4); WHITE BLOOD COUNT 6.31 x10e3/uL (4.8-10.8)
[2024-06-15] MEDS: SODIUM CHLORIDE 0.9% 1000ML 1,000 ML IV ONE (14:38)
[2024-06-15 14:44] LABS: INR 1.02; PROTHROMBIN TIME 13.9 seconds (11.9-14.5)
[2024-06-15 14:45] LABS: PARTIAL THROMBOPLASTIN TIME 37.5 seconds (23.8-35.5)
[2024-06-15] MEDS: MAGNESIUM SULFATE 2GM/50ML 50 ML IV ONE (14:49)
[2024-06-15 14:54] LABS: ALBUMIN 2.9 g/dL (3.5-5.0); ALBUMIN/GLOBULIN RATIO 0.7 (0.8-2.0); ANION GAP 13.7 mmol/L (8-16); BILIRUBIN,TOTAL 1.2 mg/dL (0.2-1.2); CREATININE, SERUM 1.38 mg/dL (0.72-1.25); POTASSIUM 3.7 mmol/L (3.5-5.1); TOTAL PROTEIN 7.1 g/dL (6.5-8.1)
[2024-06-15 16:52] VITALS: PULSE 67; RESP 14
[2024-06-15] MEDS: ASPIRIN 81 MG CHEW TAB PO ONE (17:14)
[2024-06-15] MEDS: SODIUM CHLORIDE 0.9% 1000ML 1,000 ML IV SCH (18:00)
[2024-06-15 20:00] VITALS: BP 101/63; PULSE 61; RESP 18; TEMP 97.5; O2SAT 98
[2024-06-15 21:30] VITALS: PULSE 64; RESP 16; O2SAT 98
[2024-06-16] VITALS (7 sets, daily range): BP systolic 108–144; BP diastolic 78–85; PULSE 60–100; RESP 16–20; TEMP 97.9–98.8; O2SAT 96–100
[2024-06-16] MEDS: SODIUM CHLORIDE 0.9% 1000ML 1,000 ML IV SCH (00:36)
[2024-06-16 05:30] LABS: BASOPHILS % 0.6 % (0.0-1.0); EOSINOPHILS # (AUTO) 0.1 (0.0-0.4); EOSINOPHILS % 1.5 % (0.0-6.0); HEMATOCRIT 38.2 % (38.2-49.6); HEMOGLOBIN 12.1 g/dL (14.0-18.0); LYMPHOCYTES # (AUTO) 0.6 (1.0-3.2); LYMPHOCYTES % 11.9 % (18.0-39.1); MEAN CORPUSCULAR HEMOGLOBIN 28.9 pg (28-32); MEAN CORPUSCULAR HGB CONC 31.7 g/dL (31-35); MEAN CORPUSCULAR VOLUME 91.4 fL (81-99); MONOCYTES # (AUTO) 0.5 (0.2-0.8); MONOCYTES % 9.9 % (4.4-11.3); NEUTROPHILS % 75.4 % (38.7-80.0); PLATELET COUNT 114 x10e3/uL (140-360); RED BLOOD COUNT 4.18 x10e6/uL (4.3-5.7); RED CELL DISTRIBUTION WIDTH 14.6 % (11.7-14.4); WHITE BLOOD COUNT 5.36 x10e3/uL (4.8-10.8)
[2024-06-16 05:47] LABS: ALBUMIN 2.4 g/dL (3.5-5.0); ALBUMIN/GLOBULIN RATIO 0.6 (0.8-2.0); BILIRUBIN,TOTAL 0.8 mg/dL (0.2-1.2); CALCIUM 8.4 mg/dL (8.4-10.2); CREATININE, SERUM 1.04 mg/dL (0.72-1.25); TOTAL PROTEIN 6.1 g/dL (6.5-8.1)
[2024-06-16 05:58] LABS: CREATINE KINASE 34 IU/L (30-200)
[2024-06-16 06:09] LABS: TROPONIN I < 0.001 ng/mL (0-0.300)
[2024-06-16] MEDS ORDERED: LEVOCETIRIZINE D5 MG (07:37)
[2024-06-16] MEDS ORDERED: METHOCARBAMOL750 MG PO (07:37)
[2024-06-16] MEDS ORDERED: LISINOPRIL10 MG PO (07:37)
[2024-06-16] MEDS ORDERED: CARVEDILOL12.5 MG PO (07:37)
[2024-06-16] MEDS: ONDANSETRON HCL INJ 2MG/ML 2ML 2 MG/ML VIAL IV PRN (09:41)
[2024-06-16] MEDS: ACETAMINOPHEN 325 MG TAB PO PRN (09:42)
[2024-06-16] MEDS ORDERED: DEXTROSE 50% SYRINGE 50 ML IV PRN ×2 (12:00→12:45)
[2024-06-16] MEDS ORDERED: DOCUSATE SODIUM 100 MG CAP PO PRN (12:00)
[2024-06-16] MEDS ORDERED: ALBUTEROL/IPRATROPIUM 3 ML NEB NEB PRN (12:00)
[2024-06-16] MEDS ORDERED: HYDRALAZINE HCL 20 MG/ML VIAL IV PRN (12:00)
[2024-06-16] MEDS ORDERED: DIPHENHYDRAMINE HCL 25 MG CAP PO PRN (12:00)
[2024-06-16] MEDS ORDERED: LIDOCAINE 4% PATCH TP PRN (12:00)
[2024-06-16] MEDS ORDERED: BENZONATATE 100 MG CAP PO PRN (12:00)
[2024-06-16] MEDS ORDERED: SIMETHICONE 80 MG CHEW PO PRN (12:00)
[2024-06-16] MEDS ORDERED: SODIUM CHLORIDE 0.9% 500ML 500 ML IV ONE (12:00)
[2024-06-16] MEDS ORDERED: POTASSIUM CHLORIDE 20 MEQ TAB CR PO PRN (12:00)
[2024-06-16] MEDS: SODIUM CHLORIDE 0.9% 500ML 500 ML IV ONE (12:30)
[2024-06-16] MEDS ORDERED: IOPAMIDOL 370 MG/ML 100 ML INFUS..BTL INJ ONE (13:17)
[2024-06-16] MEDS ORDERED: SODIUM CHLORIDE 0.9% 250ML 250 ML ONE (13:18)
[2024-06-16 15:41] LABS: CREATINE KINASE 36 IU/L (30-200)
[2024-06-16 15:54] LABS: TROPONIN I < 0.001 ng/mL (0-0.300)
[2024-06-16] MEDS: ENOXAPARIN SOD INJ 40 MG/0.4 ML SYR SC SCH (16:44)
[2024-06-16] MEDS: INSULIN LISPRO 100 UNIT/1 ML 3ML VIAL SQ SCH (16:50)
[2024-06-16] MEDS ORDERED: MELATONIN 5 MG TABLET PO PRN (21:00)
[2024-06-16] MEDS: TAMSULOSIN HCL 0.4 MG CAP PO SCH (22:08)
[2024-06-16] MEDS: SIMVASTATIN 80 MG TAB PO SCH (22:08)
[2024-06-17] VITALS (10 sets, daily range): BP systolic 96–163; BP diastolic 74–93; PULSE 63–75; RESP 16–20; TEMP 97.4–98.2; O2SAT 96–100
[2024-06-17] MEDS: LEVOTHYROXINE SODIUM 50 MCG TAB PO SCH (05:30)
[2024-06-17 06:13] LABS: BASOPHILS % 0.4 % (0.0-1.0); EOSINOPHILS # (AUTO) 0.2 (0.0-0.4); HEMATOCRIT 36.5 % (38.2-49.6); HEMOGLOBIN 11.7 g/dL (14.0-18.0); LYMPHOCYTES # (AUTO) 1.2 (1.0-3.2); LYMPHOCYTES % 16.1 % (18.0-39.1); MEAN CORPUSCULAR HEMOGLOBIN 29.3 pg (28-32); MEAN CORPUSCULAR HGB CONC 32.1 g/dL (31-35); MEAN CORPUSCULAR VOLUME 91.5 fL (81-99); MONOCYTES # (AUTO) 0.7 (0.2-0.8); MONOCYTES % 8.9 % (4.4-11.3); NEUTROPHILS # (AUTO) 5.4 (2.1-6.9); NEUTROPHILS % 71.9 % (38.7-80.0); PLATELET COUNT 147 x10e3/uL (140-360); RED BLOOD COUNT 3.99 x10e6/uL (4.3-5.7); RED CELL DISTRIBUTION WIDTH 14.9 % (11.7-14.4); WHITE BLOOD COUNT 7.51 x10e3/uL (4.8-10.8)
[2024-06-17 06:36] LABS: ANION GAP 10.2 mmol/L (8-16); CALCIUM 8.2 mg/dL (8.4-10.2); CREATININE, SERUM 1.01 mg/dL (0.72-1.25); MAGNESIUM 2.1 MG/DL (1.3-2.1); POTASSIUM 4.2 mmol/L (3.5-5.1)
[2024-06-17 07:05] LABS: CREATINE KINASE 30 IU/L (30-200)
[2024-06-17 07:13] LABS: TROPONIN I < 0.001 ng/mL (0-0.300)
[2024-06-17] MEDS: FENOFIBRATE 160 MG TAB PO SCH (09:00)
[2024-06-17] MEDS: PANTOPRAZOLE SOD 40 MG TABEC PO SCH (10:39)
[2024-06-17] MEDS: MONTELUKAST SODIUM 10 MG TAB PO SCH (10:40)
[2024-06-17] MEDS: CLOPIDOGREL BISULFATE 75 MG TAB PO SCH (10:40)
[2024-06-17] MEDS: ASPIRIN 81 MG ENTERIC COATED PO SCH (10:40)
[2024-06-18] VITALS (8 sets, daily range): BP systolic 135–145; BP diastolic 80–94; PULSE 63–88; RESP 16–18; TEMP 97.8–98.8; O2SAT 95–99
[2024-06-18 06:09] LABS: BASOPHILS % 0.5 % (0.0-1.0); EOSINOPHILS # (AUTO) 0.2 (0.0-0.4); EOSINOPHILS % 2.9 % (0.0-6.0); HEMATOCRIT 40.4 % (38.2-49.6); HEMOGLOBIN 12.8 g/dL (14.0-18.0); LYMPHOCYTES # (AUTO) 1.2 (1.0-3.2); LYMPHOCYTES % 20.4 % (18.0-39.1); MEAN CORPUSCULAR HGB CONC 31.7 g/dL (31-35); MEAN CORPUSCULAR VOLUME 91.6 fL (81-99); MONOCYTES # (AUTO) 0.6 (0.2-0.8); MONOCYTES % 9.4 % (4.4-11.3); NEUTROPHILS # (AUTO) 3.8 (2.1-6.9); NEUTROPHILS % 65.9 % (38.7-80.0); PLATELET COUNT 148 x10e3/uL (140-360); RED BLOOD COUNT 4.41 x10e6/uL (4.3-5.7); RED CELL DISTRIBUTION WIDTH 14.6 % (11.7-14.4); WHITE BLOOD COUNT 5.83 x10e3/uL (4.8-10.8)
[2024-06-18 06:48] LABS: ANION GAP 11.8 mmol/L (8-16); CALCIUM 8.6 mg/dL (8.4-10.2); CREATININE, SERUM 0.91 mg/dL (0.72-1.25); POTASSIUM 3.8 mmol/L (3.5-5.1)
[2024-06-19] VITALS (7 sets, daily range): BP systolic 118–147; BP diastolic 78–99; PULSE 63–113; RESP 16–20; TEMP 97.5–98.2; O2SAT 96–100
== END 2024-06-19 16:05 | disposition home or self-care (01) | DRG 690 ==
LOC: ER 14:16 → ERHOLD 17:57 → MED/SURG3 18:09 → OBSVTOIN 06-17 09:12
PROVIDERS: ADMIT Internal Medicine; ATTEND Internal Medicine
DX: N39.0 Urinary tract infection, site not specified (principal); E86.0 Dehydration; Z90.5 Acquired absence of kidney; Z85.528 Personal history of other malignant neoplasm of kidney; I25.10 Atherosclerotic heart disease of native coronary artery without angina pectoris; Z95.5 Presence of coronary angioplasty implant and graft; E11.9 Type 2 diabetes mellitus without complications; I10 Essential (primary) hypertension; E66.01 Morbid (severe) obesity due to excess calories; Z79.82 Long term (current) use of aspirin; Z79.84 Long term (current) use of oral hypoglycemic drugs; Z79.890 Hormone replacement therapy; Z68.33 Body mass index [BMI] 33.0-33.9, adult; E78.5 Hyperlipidemia, unspecified; M54.9 Dorsalgia, unspecified; Z96.652 Presence of left artificial knee joint; R55 Syncope and collapse; B96.20 Unspecified Escherichia coli [E. coli] as the cause of diseases classified elsewhere; Z11.52 Encounter for screening for COVID-19; N40.1 Benign prostatic hyperplasia with lower urinary tract symptoms; Z79.02 Long term (current) use of antithrombotics/antiplatelets
CPT/HCPCS: 36415; 51700; 70450; 71045; 74178; 80048; 80053; 82550; 82948; 83036; 83605; 83735; 84443; 84484; 85025; 85610; 85730; 87040; 87086; 87186; 87400; 93005; 93306; 93880; 94799; 96361; 99252; 99284; G0378; J0696; J1650; J2405; J3475; J7030; J7040; J7050; Q9967; U0002

== ENCOUNTER → 2024-07-03 | Day surgery (SDC) | payer MEDICARE ==
[2024-07-02 12:56] LABS: BASOPHILS # (AUTO) 0.1 (0.0-0.1); BASOPHILS % 0.6 % (0.0-1.0); EOSINOPHILS # (AUTO) 0.1 (0.0-0.4); EOSINOPHILS % 0.9 % (0.0-6.0); HEMATOCRIT 43.7 % (38.2-49.6); HEMOGLOBIN 13.7 g/dL (14.0-18.0); LYMPHOCYTES # (AUTO) 1.9 (1.0-3.2); LYMPHOCYTES % 21.2 % (18.0-39.1); MEAN CORPUSCULAR HEMOGLOBIN 28.9 pg (28-32); MEAN CORPUSCULAR HGB CONC 31.4 g/dL (31-35); MEAN CORPUSCULAR VOLUME 92.2 fL (81-99); MONOCYTES # (AUTO) 0.6 (0.2-0.8); NEUTROPHILS # (AUTO) 6.1 (2.1-6.9); PLATELET COUNT 205 x10e3/uL (140-360); RED BLOOD COUNT 4.74 x10e6/uL (4.3-5.7); RED CELL DISTRIBUTION WIDTH 14.9 % (11.7-14.4); WHITE BLOOD COUNT 8.74 x10e3/uL (4.8-10.8)
[2024-07-02 13:14] LABS: ANION GAP 14.5 mmol/L (8-16); CALCIUM 9.6 mg/dL (8.4-10.2); CREATININE, SERUM 1.35 mg/dL (0.72-1.25); POTASSIUM 4.5 mmol/L (3.5-5.1)
[~2024-07-03] MED LIST changes: +DEXAMETHASONE SOD PHOS INJ 4 MG/ML SDV ONE; +FENTANYL CITRATE/PF 100MCG/2 ML INJ ONE; +IOPAMIDOL 610MG/1ML 300 MG/ML VIAL IV ONE; +LEVOCETIRIZINE D5 MG; +LIDOCAINE HCL 2% LOCAL INJ 5 ML SDV VIAL INJ ONE; +LISINOPRIL10 MG PO; +MIDAZOLAM HCL 2 MG/2 ML VIAL ONE; +ONDANSETRON HCL INJ 2MG/ML 2ML 2 MG/ML VIAL ONE; +PROPOFOL IV EMULSION 10 MG/ML 20 ML VIAL ONE; +SEVOFLURANE INHAL SOLN 250 ML PEN BTL ONE
[2024-07-03] MEDS: CEFTRIAXONE 1 GM VIAL ONE (05:52)
[2024-07-03] MEDS: LACTATED RINGER'S 1,000 ML ONE (05:52)
[2024-07-03 08:24] VITALS: TEMP 98.5
[2024-07-03] MEDS: PHENAZOPYRIDINE HCL 100 MG TAB ONE ×2 (08:50→08:51)
[2024-07-03 08:54] VITALS: BP 131/73; PULSE 62; RESP 18; O2SAT 98
[2024-07-03 10:16] LABS: CALCIUM 9.6 mg/dL (8.6-10.2)
== END | disposition home or self-care (01) ==
LOC: OR 06:14
PROVIDERS: ATTEND Urology
DX: N20.0 Calculus of kidney (principal); N35.919 Unspecified urethral stricture, male, unspecified site; N32.89 Other specified disorders of bladder; Z90.5 Acquired absence of kidney; G47.33 Obstructive sleep apnea (adult) (pediatric); I10 Essential (primary) hypertension; I25.10 Atherosclerotic heart disease of native coronary artery without angina pectoris; E78.5 Hyperlipidemia, unspecified; E11.9 Type 2 diabetes mellitus without complications; E03.9 Hypothyroidism, unspecified; M06.9 Rheumatoid arthritis, unspecified; H91.90 Unspecified hearing loss, unspecified ear; Z01.812 Encounter for preprocedural laboratory examination; Z01.811 Encounter for preprocedural respiratory examination; Z79.02 Long term (current) use of antithrombotics/antiplatelets; Z79.82 Long term (current) use of aspirin; Z79.84 Long term (current) use of oral hypoglycemic drugs; Z79.899 Other long term (current) drug therapy; Z95.5 Presence of coronary angioplasty implant and graft
CPT/HCPCS: 36415 ×2; 50590; 52281; 74018; 80048; 82948; 83970; 84550; 85025; C1758; J0696; J1100; J2003; J2250; J2405; J2704; J3010; J7121; Q9967

== ENCOUNTER → 2024-11-15 | Outpatient (REF) | payer MEDICARE ==
[~2024-11-15] MED LIST changes: -DEXAMETHASONE SOD PHOS INJ 4 MG/ML SDV ONE; -FENTANYL CITRATE/PF 100MCG/2 ML INJ ONE; -IOPAMIDOL 610MG/1ML 300 MG/ML VIAL IV ONE; -LIDOCAINE HCL 2% LOCAL INJ 5 ML SDV VIAL INJ ONE; -MIDAZOLAM HCL 2 MG/2 ML VIAL ONE; -ONDANSETRON HCL INJ 2MG/ML 2ML 2 MG/ML VIAL ONE; -PROPOFOL IV EMULSION 10 MG/ML 20 ML VIAL ONE; -SEVOFLURANE INHAL SOLN 250 ML PEN BTL ONE
== END ==
LOC: US 10:53
PROVIDERS: ATTEND Urology
DX: C64.2 Malignant neoplasm of left kidney, except renal pelvis (principal); C64.1 Malignant neoplasm of right kidney, except renal pelvis; C67.9 Malignant neoplasm of bladder, unspecified; N20.0 Calculus of kidney
CPT/HCPCS: 71046; 74018; 76770; 76857

== ENCOUNTER → 2025-04-29 | Outpatient (REF) | payer MEDICARE | LOC: US 13:04 | PROVIDERS: ATTEND Urology | DX: C64.1 Malignant neoplasm of right kidney, except renal pelvis (principal); C67.9 Malignant neoplasm of bladder, unspecified; N20.0 Calculus of kidney | CPT/HCPCS: 71046; 74018; 76770; 76857 ==